=== PATIENT | male | born 1995 | race Caucasian/White ===

== ENCOUNTER 2021-04-30 02:50 | Emergency (ER) | payer SELFPAY ==
[2021-04-30 03:44] LABS: Bilirubin,Urine NEG (Negative); Blood,Urine NEG (Negative); Color,Urine Yellow (Yellow); Protein,Urine <15 mg/dL mg/dL (Negative); RBC,Urine < 1.0 /HPF (0.0-6.0); Urobilinogen,Urine < 2.0 mg/dL (<2.0)
[2021-04-30 03:48] LABS: Amphetamine Screen,Urine Negative; Benzodiazepines Screen,Urine Negative; Cannabinoid Screen,Urine Negative; Cocaine Screen,Urine Negative; Methadone Screen,Urine Negative; Opiate Screen,Urine Negative
[2021-04-30 04:03] LABS: Basophils # (Auto) 0.1 K/mm3 (0.0-0.1); Basophils % (Auto) 0.5 % (0.0-1.8); Eosinophils # (Auto) 0.1 K/mm3 (0.0-0.4); Eosinophils % (Auto) 0.6 % (0.0-4.3); Hematocrit 49.8 % (35.5-45.6); Hemoglobin 16.8 gm/dl (11.8-15.2); Lymphocytes # (Auto) 2.6 K/mm3 (1.2-5.4); Lymphocytes % (Auto) 21.6 % (13.4-35.0); Mean Corpuscular HGB Conc 34 % (32-34); Mean Corpuscular Volume 87 fl (84-94); Monocytes # (Auto) 0.6 K/mm3 (0.0-0.8); Monocytes % (Auto) 5.2 % (0.0-7.3); Platelet Count 264 K/mm3 (140-440); Red Blood Count 5.74 M/mm3 (3.65-5.03); Red Cell Distribution Width 12.6 % (13.2-15.2)
[2021-04-30 04:17] LABS: BUN/Creatinine Ratio 9; Blood Urea Nitrogen 9 mg/dL (9-20); Calcium 9.7 mg/dL (8.4-10.2); Hemolysis Index 27
--- NOTE | 2021-04-30 04:31 | Emergency Department Report ---
ED Psych HPI - General Chief Complaint: Psych Stated Complaint: PSYCH Time Seen by Provider: 04/30/21 02:58 Source: patient, police, steel grinder Mode of arrival: Stretcher Limitations: Language Barrier - History of Present Illness Initial Comments: PT BROUGHT IN BY ENOC MILLIGAN, 1013 BY [facility] [place] [facility]. AGGRESSIVE BEHAVIOR TOWARD FAMILY AND NONCOMPLIANCE TO MEDICATIONS MD Complaint: suicidal ideation -: month(s) Associated Psychiatric Symptoms: depression, suicidal ideation History of same: Yes Quality: intermittent Context: not taking psychiatric Associated Symptoms: denies other symptoms - Related Data Home Medications Medication Instructions Recorded Confirmed Last Taken OLANZapine [Zyprexa] 20 mg PO QHS 04/30/21 04/30/21 Unknown Sertraline [Zoloft] 150 mg PO QDAY 04/30/21 04/30/21 Unknown Allergies Allergy/AdvReac Type Severity Reaction Status Date / Time No Known Allergies Allergy Verified 04/30/21 03:04 ED Review of Systems ROS: Stated complaint: PSYCH Other details as noted in HPI Comment: Unobtainable due to pts medical conditions ED Past Medical Hx - Past Medical History Previous Medical History?: No Hx Hypertension: No Hx Psychiatric Treatment: Yes (sCHIZOPHRENIA) - Social History Smoking Status: Unknown if ever smoked Substance Use Type: None - Medications Home Medications: Home Medications Medication Instructions Recorded Confirmed Last Taken Type OLANZapine [Zyprexa] 20 mg PO QHS 04/30/21 04/30/21 Unknown History Sertraline [Zoloft] 150 mg PO QDAY 04/30/21 04/30/21 Unknown History ED Physical Exam - General Limitations: No Limitations General appearance: alert, in no apparent distress - Head Head exam: Present: atraumatic, normocephalic - Eye Eye exam: Present: normal appearance - ENT ENT exam: Present: mucous membranes moist - Neck Neck exam: Present: normal inspection - Respiratory Respiratory exam: Present: normal lung sounds bilaterally. Absent: respiratory distress - Cardiovascular Cardiovascular Exam: Present: regular rate, normal rhythm. Absent: systolic murmur, diastolic murmur, rubs, gallop - GI/Abdominal GI/Abdominal exam: Present: soft, normal bowel sounds - Rectal Rectal exam: Present: deferred - Extremities Exam Extremities exam: Present: normal inspection - Back Exam Back exam: Present: normal inspection - Neurological Exam Neurological exam: Present: alert, oriented X3 - Psychiatric Psychiatric exam: Present: depressed - Skin Skin exam: Present: warm, dry, intact, normal color. Absent: rash ED Course Vital Signs 04/30/21 04/30/21 04/30/21 02:50 03:23 16:27 Temperature 97.6 F 98.1 F Pulse Rate 80 90 77 Respiratory 16 16 16 Rate Blood Pressure 128/79 130/88 120/75 [Left] O2 Sat by Pulse 98 99 97 Oximetry 04/30/21 05/01/21 05/01/21 21:00 05:48 09:54 Temperature 98.0 F Pulse Rate 75 Respiratory 16 18 Rate Blood Pressure 129/84 [Left] O2 Sat by Pulse 98 98 98 Oximetry 05/01/21 05/01/21 05/02/21 16:11 23:53 02:52 Temperature 97.9 F 98.5 F 98.8 F Pulse Rate 117 H 86 79 Respiratory 16 18 16 Rate Blood Pressure 129/88 113/72 142/107 [Left] O2 Sat by Pulse 98 98 95 Oximetry 05/02/21 05/02/21 02:53 04:33 Temperature 97.6 F Pulse Rate 86 Respiratory 18 18 Rate Blood Pressure 114/79 [Left] O2 Sat by Pulse 98 98 Oximetry ED Medical Decision Making - Lab Data Result diagrams: 05/01/21 01:09 04/30/21 03:47 Critical care attestation.: If time is entered above; I have spent that time in minutes in the direct care of this critically ill patient, excluding procedure time. ED Disposition Clinical Impression: Suicidal ideation, Schizophrenia Disposition: [address] [place] [address] Is pt being admited?: No Does the pt Need Aspirin: No Condition: Stable Additional Instructions: Professional and Agency Contacts To help [facility] Crises (02/10) [place] Crisis Line: Suicide Prevention Line: Crisis Text Line: Text START to 138821 Emergency: 911 Outpatient [facility] Behavioral Health Resources: [place]: [facility] [address], [place] [address] [facility] [address] [place] [address] Sunday thru Sunday - 8am - 5pm Call to schedule an assessment for mental health and substance abuse programs [place]: [facility] Address: [address] [place] [address] Sunday thru Sunday- 7am-2pm [facility] Address: [address] [place] [address] Sunday thru Sunday: 8:30AM-5PM Referrals: NAY BOYLE MD [Primary Care Provider] - 3-5 Days
--- NOTE | 2021-04-30 14:00 | Consultation ---
History of Present Illness - Reason for Consult Consult date: 04/30/21 Reason for consult: suicidal ideation - History of Present Psychiatric Illness The patient is a 26 year old male with history of Schizophrenia. In my interview with the patient, he is calm, alert and oriented x3. the patient reports that he had a fight with his brother. He is noncompliant with ps ychotropic meds, last took med about 5 months ago. He endorses suicidal ideation with a plan to hang himself. He denies homicidal ideation and denies hallucinations. PAST PSYCHIATRIC HISTORY Diagnoses: Schizophrenia Suicide attempts or Self-harm behavior: Yes Prior psychiatric hospitalizations: Yes Substance Abuse history: Denies Previous psychiatric medications tried:Unable to recall Outpatient treatment: Denies PAST MEDICAL HISTORY: Family Psychiatric History: None reported or documented SOCIAL HISTORY Marital Status: Single Living Arrangements:Lives with family Employment Status: Unemployed Access to guns/weapons: None reported Education: 9th grade History of Abuse: None reported Legal History: Unknown REVIEW OF SYSTEMS Constitutional: Negative for weight loss ENT: Negative for stridor Respiratory: Negative for cough or hemoptysis All other systems reviewed and are negative MENTAL STATUS EXAMINATION General Appearance and Behavior: Age appropriate, good hygiene, wearing appropriate clothes, good eye contact, cooperative with questioning Cooperation: Participating/engaged Psychomotor Behavior: unremarkable and within normal limits Mood: Depressed Affect and affective range: congruent with mood Thought Process: Goal directed Thought Content: Reality oriented Speech: Normal volume, Regular rate and rhythm. Intellectual Functioning: Average Suicidal Ideation:Yes Homicidal Ideation: Denies Hallucinations: Denies Delusions: None elicited Impulse Control: Limited Insight and Judgment: limited insight and poor judgment Memory: Normal Attention: Normal Orientation: Alert, oriented. Assessment and Plan (1) Schizophrenia Current Visit: No Status: Acute Treatment Plan 1013 Start Seroquel 50 mg po BID Risks, benefits and alternatives of medications discussed with the patient, questions answered and consent obtained from patient. PSYCHOTHERAPY: Supportive psychotherapy provided MEDICAL: Per primary team DELIRIUM PRECAUTIONS: Please re-orient patient frequently, keep lights on during the day, and minimize benzodiazepines and opiates as these medications could worsen patient's confusion. SPACE OPERATIONS: non indicated DISPOSITION: Recommend acute inpatient psychiatric hospitalization at this time. FOLLOW-UP: Will follow. Thank you for the consult. Please contact with any questions and/or concerns. Case staffed with Dr. Kevin Medications and Allergies Allergies Allergy/AdvReac Type Severity Reaction Status Date / Time No Known Allergies Allergy Verified 04/30/21 03:04 Home Medications Medication Instructions Recorded Confirmed Last Taken Type OLANZapine [Zyprexa] 20 mg PO QHS 04/30/21 04/30/21 Unknown History Sertraline [Zoloft] 150 mg PO QDAY 04/30/21 04/30/21 Unknown History Mental Status Exam - Vital signs Last Vital Signs Temp 98.1 F 04/30/21 03:23 Pulse 90 04/30/21 03:23 Resp 16 04/30/21 03:23 BP 130/88 04/30/21 03:23 Pulse Ox 99 04/30/21 03:23 Results Result Diagrams: 04/30/21 03:47 04/30/21 03:47 Abnormal lab results 04/30/21 04/30/21 04/30/21 Range/Units 03:47 03:47 03:47 WBC 12.0 H (4.5-11.0) K/mm3 RBC 5.74 H (3.65-5.03) M/mm3 Hgb 16.8 H (11.8-15.2) gm/dl Hct 49.8 H (35.5-45.6) % RDW 12.6 L (13.2-15.2) % Seg Neutrophils % 72.1 H (40.0-70.0) % Seg Neutrophils # 8.6 H (1.8-7.7) K/mm3 Sodium 136 L (137-145) mmol/L Chloride 97.9 L (98-107) mmol/L Salicylates < 0.3 L (2.8-20.0) mg/dL Acetaminophen (10.0-30.0) ug/mL 04/30/21 Range/Units 03:47 WBC (4.5-11.0) K/mm3 RBC (3.65-5.03) M/mm3 Hgb (11.8-15.2) gm/dl Hct (35.5-45.6) % RDW (13.2-15.2) % Seg Neutrophils % (40.0-70.0) % Seg Neutrophils # (1.8-7.7) K/mm3 Sodium (137-145) mmol/L Chloride (98-107) mmol/L Salicylates (2.8-20.0) mg/dL Acetaminophen 5.0 L (10.0-30.0) ug/mL All other labs normal.
[2021-04-30] MEDS: QUEtiapine 25 MG TAB PO SCH ×2 (16:31→22:02)
--- NOTE | 2021-04-30 23:17 | Event Note ---
Date: 04/30/21 26-year-old male brought in by police 1013 and for aggressive behavior towards family and noncompliance with medications for schizophrenia. He was seen by my colleague and was medically cleared for psychiatric evaluation and placement. Vital signs reviewed and are stable. No acute events overnight. Currently awaiting inpatient psychiatric facility placement.
[2021-05-01 01:23] LABS: Hematocrit 48.1 % (35.5-45.6); Hemoglobin 16.2 gm/dl (11.8-15.2); Mean Corpuscular HGB Conc 34 % (32-34); Mean Corpuscular Volume 87 fl (84-94); Platelet Count 272 K/mm3 (140-440); Red Blood Count 5.53 M/mm3 (3.65-5.03); Red Cell Distribution Width 12.9 % (13.2-15.2)
--- NOTE | 2021-05-01 09:40 | Progress Note ---
Subjective - Reason for Consult Consult date: 05/01/21 Reason for consult: SI - Chief Complaint Chief complaint: The patient was seen this morning. Interview was conducted via crm coordinator # [id number]. The patient presents with flat affect. He continues to endorse suicidal ideation. Denies hallucinations. REVIEW OF SYSTEMS Constitutional: Negative for weight loss ENT: Negative for stridor Respiratory: Negative for cough or hemoptysis All other systems reviewed and are negative MENTAL STATUS EXAMINATION General Appearance and Behavior: Age appropriate, good hygiene, wearing appropriate clothes, good eye contact, cooperative with questioning Cooperation: Participating/engaged Psychomotor Behavior: unremarkable and within normal limits Mood: Depressed Affect and affective range: congruent with mood Thought Process: Goal directed Thought Content: Reality oriented Speech: Normal volume, Regular rate and rhythm. Intellectual Functioning: Average Suicidal Ideation:Yes Homicidal Ideation: Denies Hallucinations: Denies Delusions: None elicited Impulse Control: Limited Insight and Judgment: limited insight and poor judgment Memory: Normal Attention: Normal Orientation: Alert, oriented. Assessment and Plan (1) Schizophrenia Current Visit: No Status: Acute Treatment Plan 1013 Start Seroquel 50 mg po BID Risks, benefits and alternatives of medications discussed with the patient, questions answered and consent obtained from patient. PSYCHOTHERAPY: Supportive psychotherapy provided MEDICAL: Per primary team DELIRIUM PRECAUTIONS: Please re-orient patient frequently, keep lights on during the day, and minimize benzodiazepines and opiates as these medications could worsen patient's confusion. CARDIOPULMONARY PHYSICAL THERAPIST: non indicated DISPOSITION: Recommend acute inpatient psychiatric hospitalization at this time. FOLLOW-UP: Will follow. Thank you for the consult. Please contact with any questions and/or concerns. Case staffed with Dr. Brown Medications and Allergies Mental Status Exam - Vital signs Last Vital Signs Temp 98.0 F 04/30/21 21:00 Pulse 75 04/30/21 21:00 Resp 18 05/01/21 05:48 BP 129/84 04/30/21 21:00 Pulse Ox 98 05/01/21 05:48
[2021-05-01] MEDS: QUEtiapine 25 MG TAB PO SCH ×2 (09:52→22:05)
[2021-05-01] MEDS ORDERED: HALOPERIDOL LACTATE 5 MG/1 ML INJ IM ONE (10:37)
[2021-05-01] MEDS ORDERED: HALOPERIDOL LACTATE 5 MG/1 ML INJ ONE (10:39)
--- NOTE | 2021-05-01 11:14 | Event Note ---
Date: 05/01/21 26-year-old male here with psychosis. He was seen by my colleague and was medically cleared for psychiatric evaluation placement. Vital signs reviewed and are stable. No acute events overnight. Currently awaiting placement.
[2021-05-02] MEDS ORDERED: diphenhydrAMINE 50 MG/ML VIAL IM PRN (08:15)
[2021-05-02] MEDS ORDERED: LORazepam 2 MG/ML VIAL IM PRN (08:16)
[2021-05-02] MEDS: QUEtiapine 25 MG TAB PO SCH ×2 (10:16→22:16)
--- NOTE | 2021-05-02 11:15 | Event Note ---
No acute issues. Patient is medically clear for psychiatric care.
[2021-05-03] MEDS: QUEtiapine 25 MG TAB PO SCH (09:46)
--- NOTE | 2021-05-03 10:37 | Progress Note ---
Subjective - Reason for Consult Consult date: 05/03/21 Reason for consult: suicidal ideation - Chief Complaint Chief complaint: The patient was seen this morning. Interview was conducted via career and transition teacher. The patient reports doing well. States sleep and appetite as good. The patient denies any current suicidal/homicidal ideation and homicidal. REVIEW OF SYSTEMS Constitutional: Negative for weight loss ENT: Negative for stridor Respiratory: Negative for cough or hemoptysis All other systems reviewed and are negative MENTAL STATUS EXAMINATION General Appearance and Behavior: Age appropriate, good hygiene, wearing appropriate clothes, good eye contact, cooperative with questioning Cooperation: Participating/engaged Psychomotor Behavior: unremarkable and within normal limits Mood: Depressed Affect and affective range: congruent with mood Thought Process: Goal directed Thought Content: Reality oriented Speech: Normal volume, Regular rate and rhythm. Intellectual Functioning: Average Suicidal Ideation:Denies Homicidal Ideation: Denies Hallucinations: Denies Delusions: None elicited Impulse Control: Limited Insight and Judgment: limited insight and poor judgment Memory: Normal Attention: Normal Orientation: Alert, oriented. Assessment and Plan (1) Schizophrenia Current Visit: No Status: Acute Treatment Plan DC 1013 Start Seroquel 50 mg po BID Risks, benefits and alternatives of medications discussed with the patient, questions answered and consent obtained from patient. PSYCHOTHERAPY: Supportive psychotherapy provided MEDICAL: Per primary team DELIRIUM PRECAUTIONS: Please re-orient patient frequently, keep lights on during the day, and minimize benzodiazepines and opiates as these medications could worsen patient's confusion. SOLE TRIMMER: non indicated DISPOSITION: Do not recommend acute inpatient psychiatric hospitalization at this time. Checkroom Attendant will provide patient with psychiatric outpatient resources and safety plan. FOLLOW-UP: Will sign off. Please contact with any questions and/or concerns. Case staffed with Dr. Brown Medications and Allergies Mental Status Exam - Vital signs Last Vital Signs Temp 98.7 F 05/03/21 00:05 Pulse 70 05/03/21 00:05 Resp 18 05/03/21 00:05 BP 122/73 05/03/21 00:05 Pulse Ox 97 05/03/21 08:48
[2021-05-03 10:53] VITALS: BP 121/75
== END 2021-05-03 13:51 | disposition home or self-care (01) ==
LOC: ED 02:50
DX: R45.851 Suicidal ideations (principal); F20.9 Schizophrenia, unspecified; Z20.822 Contact with and (suspected) exposure to COVID-19
CPT/HCPCS: 36415; 80048; 80307; 81001; 85025; 85027; 96372; 99284; J1200; J1630; J2060; U0003; 80320; 99283; G0480